=== PATIENT | female | born 1950 | race Two or more races ===

== ENCOUNTER 2017-07-28 09:41 | Day surgery (SDC) | payer OTHER ==
[2017-07-27 15:15] VITALS: BMI 23.8
[2017-07-28] MEDS ORDERED: PROPOFOL 20 ML ONE ×2 (10:31)
[2017-07-28] MEDS ORDERED: LIDOCAINE HCL/PF 2% SDV 5ML VIAL ONE (10:31)
[2017-07-28 11:11] VITALS: TEMP 97.9
[2017-07-28 12:08] VITALS: BP 145/71; PULSE 61
--- NOTE | 2017-07-29 17:36 | PATH ---
Surgical Pathology Report Patient Name: JOHANNA THOMAS [facility]. Rec. #: [id number] /Age/Gender: 1950 (Age: 67) / F Account: [id number] Location: [facility] Taken: 07/28/2017 Received: 07/28/2017 Reported: 07/29/2017 Physicians: Jaguar Adkins M.D. Specimen(s) Received BX ANTRUM Clinical History Dysphagia Antral gastritis Final Diagnosis STOMACH, ANTRUM, BIOPSY: GASTRIC ANTRAL MUCOSA WITH CHRONIC ACTIVE INFLAMMATION, MILD. IMMUNOHISTOCHEMICAL STAIN FOR H. PYLORI IS NEGATIVE. Electronically Signed Petra Harden M.D. Gross Description Received in formalin, labeled "biopsy antrum" are 3 razo, irregular portions of soft tissue ranging from 0.2-0.4 cm. in greatest dimension. The specimens are submitted in toto in one cassette. /07/28/201707/28/2017
== END 2017-07-28 12:08 | disposition home or self-care (01) ==
LOC: JASU-ENDO 09:41
PROVIDERS: ATTEND Internal Medicine Gastroenterology
PROC: 0DB68ZX Excision of Stomach, Via Natural or Artificial Opening Endoscopic, Diagnostic (ICD-10-PCS; principal; 2017-07-28 10:30)
DX: K25.9 Gastric ulcer, unspecified as acute or chronic, without hemorrhage or perforation (principal)
CPT/HCPCS: 88305-TC; 88342-TC

== ENCOUNTER 2018-01-24 18:28 | Emergency (ER) | payer OTHER ==
[2018-01-24 19:04] VITALS: BMI 23.4
--- NOTE | 2018-01-24 19:16 | PDOC ---
History of Present Illness - General History Source: Patient Exam Limitations: No Limitations <Kym Sullivan - Last Filed: 01/24/18 21:40> <Lizy Yee - Last Filed: 01/24/18 21:53> - General Chief Complaint: Palpitations Stated Complaint: PALPITATIONS Time Seen by Provider: 01/24/18 18:50 - History of Present Illness Initial Comments: 01/24/18 19:50 The patient is a 67 year old female with a significant past medical history of HTN and HLD who presents to the ED with palpitations since earlier today. The patient was recently discharged from the hospital on 01/21/18 for palpitations and had a normal echocardiogram and normal STRESS test. Patient comes to the ED today for having a sudden onset of palpitations while she was cooking one hour and half prior to arrival. She also reports intermittent lightheadedness that is worsened with certain positions associated with present symptoms. Denies chest pain or shortness of breath. Denies cough. Denies nausea, vomiting , or diarrhea. Denies dysuria or change in urinary output. Denies any other symptoms. PCP: Dr. Betzy Mckeon Cardio: Dr. Victorino Brown Surgical hx: Appendectomy (Kym Sullivan) Past History <Kym Sullivan - Last Filed: 01/24/18 21:40> - Past Medical History Anemia: No Asthma: No Cancer: No Cardiac Disorders: Yes (chest pain over 1 year ago) CVA: No COPD: No CHF: No Dementia: No Diabetes: No GI Disorders: No Disorders: No HTN: Yes Hypercholesterolemia: No Liver Disease: No Seizures: No Thyroid Disease: No - Surgical History Appendectomy: Yes - Suicide/Smoking/Psychosocial Hx Smoking Status: No Smoking History: Never smoked Have you smoked in the past 12 months: No Number of Cigarettes Smoked Daily: 0 Information on smoking cessation initiated: No Hx Alcohol Use: No Drug/Substance Use Hx: No Substance Use Type: None Hx Substance Use Treatment: No <Lizy Yee - Last Filed: 01/24/18 21:53> - Past Medical History Allergies/Adverse Reactions: Allergies Allergy/AdvReac Type Severity Reaction Status Date / Time No Known Allergies Allergy Unverified 01/24/18 19:03 Home Medications: Ambulatory Orders Lisinopril [Prinivil] 10 mg PO DAILY 03/13/13 Cardiac Specific PMH - Complaint Specific PMHX Pacemaker: No <Lizy Yee - Last Filed: 01/24/18 21:53> Review of Systems - Review of Systems Able to Perform ROS?: Yes All Other Systems: Reviewed and Negative <Kym Sullivan - Last Filed: 01/24/18 21:40> <Lizy Yee - Last Filed: 01/24/18 21:53> - Review of Systems Comments:: 01/24/18 19:50 CONSTITUTIONAL: Absent: fever, chills, diaphoresis, generalized weakness, malaise, loss of appetite HEENT: Absent: rhinorrhea, nasal congestion, throat pain, throat swelling, difficulty swallowing, mouth swelling, ear pain, eye pain, visual Changes CARDIOVASCULAR: + palpitations, lightheadedness Absent: chest pain, syncope, peripheral edema RESPIRATORY: Absent: cough, shortness of breath, dyspnea with exertion, orthopnea, wheezing, stridor, hemoptysis GASTROINTESTINAL: Absent: abdominal pain, abdominal distension, nausea, vomiting, diarrhea, constipation, melena, hematochezia GENITOURINARY: Absent: dysuria, frequency, urgency, hesitancy, hematuria, flank pain, genital pain MUSCULOSKELETAL: Absent: myalgia, arthralgia, joint swelling SKIN: Absent: rash, itching, pallor HEMATOLOGIC/IMMUNOLOGIC: Absent: easy bleeding, easy bruising, lymphadenopathy, frequent infections ENDOCRINE: Absent: unexplained weight gain, unexplained weight loss, heat intolerance, cold intolerance NEUROLOGIC: Absent: headache, focal weakness or paresthesias, dizziness, unsteady gait, seizure, mental status changes, bladder or bowel incontinence PSYCHIATRIC: Absent: anxiety, depression, suicidal or homicidal ideation, hallucinations. (Kym Sullivan) *Physical Exam <Kym Sullivan - Last Filed: 01/24/18 21:40> <Lizy Yee - Last Filed: 01/24/18 21:53> - Vital Signs Last Vital Signs Temp Pulse Resp BP Pulse Ox 97.8 F 81 16 161/86 100 01/24/18 18:38 01/24/18 18:38 01/24/18 18:38 01/24/18 18:38 01/24/18 18:38 - Physical Exam Comments: 01/24/18 19:50 GENERAL: Well developed, well nourished. Awake and alert. No acute distress. HEENT: Normocephalic, atraumatic. PERRLA, EOMI. No conjunctival pallor. Sclera are non- icteric. Moist mucous membranes. Oropharynx is clear. NECK: Supple. Full ROM. No JVD. Carotid pulses 2+ and symmetric, without bruits. No thyromegaly. No lymphadenopathy. CARDIOVASCULAR: Regular rate and rhythm. No murmurs, rubs, or gallops. Distal pulses are 2+ and symmetric. PULMONARY: No evidence of respiratory distress. Lungs clear to auscultation bilaterally. No wheezing, rales or rhonchi. ABDOMINAL: Soft. Non-tender. Non-distended. No rebound or guarding. No organomegaly. Normoactive bowel sounds. MUSCULOSKELETAL Normal range of motion at all joints. No bony deformities or tenderness. No CVA tenderness. EXTREMITIES: No cyanosis. No clubbing. No edema. No calf tenderness. SKIN: Warm and dry. Normal capillary refill. No rashes. No jaundice. NEUROLOGICAL: Alert, awake, appropriate. Cranial nerves 2-12 intact. No deficits to light touch and temperature in face, upper extremities and lower extremities. No motor deficits in the in face, upper extremities and lower extremities. Normoreflexic in the upper and lower extremities. Normal speech. Toes are down- going bilaterally. Gait is normal without ataxia. PSYCHIATRIC: Cooperative. Good eye contact. Appropriate mood and affect. (Kym Sullivan) - ADDITIONAL ORDERS Additional order review: Laboratory Results 01/24/18 19:55 Troponin I < 0.02 - Medications Given in the ED: ED Medications Discontinued Medications Generic Name Dose Route Start Last Admin Trade Name Freq PRN Reason Stop Dose Admin Aspirin 81 mg 01/24/18 19:32 01/24/18 19:41 Ecotrin - PO 01/24/18 19:33 81 mg ONCE STA Administration Medical Decision Making <Kym Sullivan - Last Filed: 01/24/18 21:40> <Lizy Yee - Last Filed: 01/24/18 21:53> - Medical Decision Making 01/24/18 21:[address] Ferreira at 21:40, patient will be discharged home and will have a Holter monitor done as an outpatient. (Kym Sullivan) 01/24/18 21:12 67-year-old female presents with complaint of palpitations. She was recently discharged from this hospital after hospitalization for chest pain. She was discharged January 21 of this month. She did have a stress test while she was hospitalized and it was essentially normal. She had 3 sets of negative troponins. The discharge plan was to follow-up with Dr. Brown next month. She was told to return to emergency department if she experienced any palpitations, which she did today. EKG today is normal sinus rhythm, normal QTC, left ventricular hypertrophy and T -wave abnormality that was unchanged from her EKG in January 19. - so significant changes were found on her EKG -her troponiin tonight is <0.02 (Lizy Yee) *DC/Admit/Observation/Transfer <Kym Sullivan - Last Filed: 01/24/18 21:40> <Lizy Yee - Last Filed: 01/24/18 21:53> Diagnosis at time of Disposition: Palpitations - Discharge Dispostion Disposition: HOME Condition at time of disposition: Stable - Referrals Referrals: Betzy Mckeon MD [Primary Care Provider] - Victorino Brown MD [Staff Physician] - - Patient Instructions Printed Discharge Instructions: DI for Palpitations Additional Instructions: please call your nursing tech and see if he can see you sooner return if your symptoms worsen - Post Discharge Activity - Attestations Scribe Attestion: 01/24/18 19:51 Documentation prepared by Kym Sullivan, acting as medical laboratory scientist for Lizy Yee MD (Kym Sullivan)
[2018-01-24] MEDS ORDERED: ASPIRIN 325 MG ENTERIC COATED TABLET (FP) PO STA (19:32)
[2018-01-24] MEDS ORDERED: ASPIRIN 81 MG CHEWABLE TABLETS ONE (19:39)
[2018-01-24 22:41] VITALS: BP 146/78; PULSE 67; TEMP 98.1
--- NOTE | 2018-01-25 12:22 | EKG ---
Test Reason : Blood Pressure : / mmHG Vent. Rate : 080 BPM Atrial Rate : 080 BPM P-R Int : 190 ms QRS Dur : 082 ms QT Int : 400 ms P-R-T Axes : 052 001 049 degrees QTc Int : 461 ms NORMAL SINUS RHYTHM POSSIBLE LEFT ATRIAL ENLARGEMENT LEFT VENTRICULAR HYPERTROPHY T WAVE ABNORMALITY, CONSIDER ANTEROLATERAL ISCHEMIA ABNORMAL ECG WHEN COMPARED WITH ECG OF 19-JAN-2018 20:41, INVERTED T WAVES HAVE REPLACED NONSPECIFIC T WAVE ABNORMALITY IN LATERAL LEADS Confirmed by DARRYL DASILVA MD ([id number]) on 01/25/2018 12:22:32 PM Referred By: Confirmed By:DARRYL DASILVA MD
== END 2018-01-24 22:41 | disposition home or self-care (01) ==
LOC: JER 18:28
DX: R00.2 Palpitations (principal); I10 Essential (primary) hypertension; E78.00 Pure hypercholesterolemia, unspecified
CPT/HCPCS: 36415; 84484; 93005; 93010; 99284-25

== ENCOUNTER 2018-12-09 10:29 | Emergency (ER) | payer OTHER ==
[2018-12-09 10:38] VITALS: BP 114/68; PULSE 72; TEMP 98.5; BMI 23.6
--- NOTE | 2018-12-09 10:44 | PDOC ---
History of Present Illness - History of Present Illness Initial Comments: 12/09/18 10:52 The patient is a 68 year old female, with a significant past medical history of hypertension, who presents to the emergency department with 2 days of left ear pain which increased last night after expoeriencing left ear "itching" for about a week. She states she was using oils on the left ear for the itching, however, stopped using the oils when she developed the pain 2 days ago. She reports associated intermittent buzzing in the left ear. She denies any throat pain. She denies putting any FB in her ear. She denies loss of hearing. The patient denies chest pain, shortness of breath, headache and dizziness. The patient denies fever, chills, nausea, vomit, diarrhea and constipation. The patient denies dysuria, frequency, urgency and hematuria. Allergies: NKDA Past surgical history: appendectomy (+30yrs ago) PCP - Dr. Julianna Gomez <Yumiko Barillas - Last Filed: 12/09/18 10:52> - General History Source: Patient Exam Limitations: No Limitations <Kim Woo - Last Filed: 12/10/18 20:40> - General Chief Complaint: Ear Problem Stated Complaint: EAR PAIN Time Seen by Provider: 12/09/18 10:43 Past History <Yumiko Barillas - Last Filed: 12/09/18 10:52> - Past Medical History Anemia: No Asthma: No Cancer: No Cardiac Disorders: Yes (chest pain over 1 year ago) CVA: No COPD: No CHF: No Dementia: No Diabetes: No GI Disorders: No Disorders: No HTN: Yes Hypercholesterolemia: No Liver Disease: No Seizures: No Thyroid Disease: No - Surgical History Appendectomy: Yes - Suicide/Smoking/Psychosocial Hx Smoking Status: No Smoking History: Never smoked Have you smoked in the past 12 months: No Number of Cigarettes Smoked Daily: 0 Hx Alcohol Use: No Drug/Substance Use Hx: No Substance Use Type: None Hx Substance Use Treatment: No <Kim Woo - Last Filed: 12/10/18 20:40> - Past Medical History Allergies/Adverse Reactions: Allergies Allergy/AdvReac Type Severity Reaction Status Date / Time No Known Allergies Allergy Unverified 01/24/18 19:03 Home Medications: Ambulatory Orders Lisinopril [Prinivil] 10 mg PO DAILY 03/13/13 Amoxicillin - [Amoxicillin 500mg Capsule -] 500 mg PO TID #15 capsule 12/09/18 Ciprofloxacin HCl/Dexameth [Ciprodex Otic Suspension] 4 drop BID 7 Days #1 bottle 12/09/18 Review of Systems - Review of Systems Able to Perform ROS?: Yes Comments:: 12/09/18 10:54 CONSTITUTIONAL: Absent: fever, no chills, no fatigue EYES: Absent: visual changes ENT: (+) left ear pain, buzzing, and itching, Absent: no sore throat CARDIOVASCULAR: Absent: chest pain, no palpitations RESPIRATORY: Absent: cough, no SOB GASTROINTESTINAL: Absent: abdominal pain, no nausea, no vomiting, no constipation, no diarrhea GENITOURINARY: Absent: dysuria, no frequency, no hematuria MUSCULOSKELETAL: Absent: back pain, no arthralgia, no myalgia SKIN: Absent: rash NEURO: Absent: headache <Yumiko Barillas - Last Filed: 12/09/18 10:52> *Physical Exam - Vital Signs Last Vital Signs Temp Pulse Resp BP Pulse Ox 98.5 F 72 16 114/68 100 12/09/18 10:37 12/09/18 10:37 12/09/18 10:37 12/09/18 10:37 12/09/18 10:37 - Physical Exam Comments: 12/09/18 10:55 GENERAL: The patient is in no acute distress. HEAD: Normal with no signs of trauma. EYES: PERRLA, EOMI, sclera anicteric, conjunctiva clear. ENT: (+) Left TM is mildly erythematous. No TM bulging. No cerumen in EAC. Pain elicited with pulling of the left pinna. right TM appears normal. nares patent , oropharynx clear without exudates. Moist mucous membranes. NECK: Normal range of motion, supple without lymphadenopathy, JVD, or masses. LUNGS: Breath sounds equal, clear to auscultation bilaterally. No wheezes, and no crackles. HEART:Regular rate and rhythm, normal S1 and S2 without murmur, rub or gallop. ABDOMEN: Soft, nontender, normoactive bowel sounds. No guarding, no rebound. No masses palpable. EXTREMITIES: Normal range of motion, no edema. No clubbing or cyanosis. No erythema, or tenderness. NEUROLOGICAL: Cranial nerves II through XII grossly intact. Normal speech. No focal neurological deficits. MUSCULOSKELETAL: Back non-tender to palpation, no CVA tenderness SKIN: Warm, Dry, normal turgor, no rashes or lesions noted. <Yumiko Barillas - Last Filed: 12/09/18 10:52> - Vital Signs Last Vital Signs Temp Pulse Resp BP Pulse Ox 98.5 F 72 16 114/68 100 12/09/18 10:37 12/09/18 10:37 12/09/18 10:37 12/09/18 10:37 12/09/18 10:37 <Kim Woo - Last Filed: 12/10/18 20:40> Moderate Sedation - Procedure Monitoring Vital Signs: Procedure Monitoring Vital Signs Temperature 98.5 F 12/09/18 10:37 Pulse Rate 72 12/09/18 10:37 Respiratory Rate 16 12/09/18 10:37 Blood Pressure 114/68 12/09/18 10:37 O2 Sat by Pulse Oximetry (%) 100 12/09/18 10:37 <Yumiko Barillas - Last Filed: 12/09/18 10:52> - Procedure Monitoring Vital Signs: Procedure Monitoring Vital Signs Temperature 98.5 F 12/09/18 10:37 Pulse Rate 72 12/09/18 10:37 Respiratory Rate 16 12/09/18 10:37 Blood Pressure 114/68 12/09/18 10:37 O2 Sat by Pulse Oximetry (%) 100 12/09/18 10:37 <Kim Woo - Last Filed: 12/10/18 20:40> Medical Decision Making - Medical Decision Making 12/10/18 20:23 68 yo F presenting to the ER with left ear pain Symptoms have been present for 4-5 days, initially pt noted itching She has been putting oil in her ear She noted ear pain for the past 2 days No fevers or chills No headache No drainage No tinnitus No mastoid pain No sore throat No trauma, no Qtip trauma On exam: TM non erythematous, No bulging, no fluid behind the ear drum EAC no fluid, no drainage, no debris No mastoid tenderness No pharyngeal erythema, non tonsillar enlargement, no exudate Will discharge to home Follow up with ENT today or tomorrow Return to the ER for any progression or worsening of symptoms <Kim Woo - Last Filed: 12/10/18 20:40> *DC/Admit/Observation/Transfer - Attestations Scribe Attestion: 12/09/18 10:56 Documentation prepared by Yumiko Barillas, acting as medical referral coordinator for Emergency Dept,Physician, <Yumiko Barillas - Last Filed: 12/09/18 10:52> - Discharge Dispostion Decision to Admit order: No <Kim Woo - Last Filed: 12/10/18 20:40> Diagnosis at time of Disposition: Ear pain Qualifiers: Laterality: left Qualified Code(s): H92.02 - Otalgia, left ear - Discharge Dispostion Disposition: HOME Condition at time of disposition: Stable - Prescriptions Prescriptions: Amoxicillin - [Amoxicillin 500mg Capsule -] 500 mg PO TID #15 capsule Ciprofloxacin HCl/Dexameth [Ciprodex Otic Suspension] 4 drop BID 7 Days #1 bottle - Referrals Referrals: Itz Gomez MD [Primary Care Provider] - Otf Jones MD [Staff Physician] - - Patient Instructions Printed Discharge Instructions: DI for Ear Pain-Adult Additional Instructions: Thank you for coming in to the ER today Please follow up with Dr Jones TODAY Return to the emergency department immediately with ANY new, persistent or worsening symptoms. Continue any medications as previously prescribed by your physician. You should follow up with your primary doctor as soon as possible regarding today's emergency department visit. Please make sure your doctor reviews the results of your emergency evaluation. Thank you for coming to the Emergency Department today for your care. It was a pleasure to see you today. Please note that your evaluation is INCOMPLETE until you follow-up with your doctor. - Post Discharge Activity Forms/Work/School Notes: Back to Work
[2018-12-09] MEDS ORDERED: IBUPROFEN 400 MG TABLET (FP) PO ONE ×2 (11:01→11:09)
== END 2018-12-09 11:07 | disposition home or self-care (01) ==
LOC: JER 10:29
DX: H92.02 Otalgia, left ear (principal); I10 Essential (primary) hypertension
CPT/HCPCS: 99281-25

== ENCOUNTER 2020-05-29 05:03 | Observation (INO) | payer OTHER ==
[2020-05-24 14:43] VITALS: BMI 25.0
[2020-05-29] MEDS ORDERED: METOPROLOL TARTRATE 5 MG/5 ML VIAL ONE (12:40)
--- NOTE | 2020-05-29 12:45 | PN ---
Progress Note (short form) - Note Progress Note: Post colonoscopy patient was noted to be in atrial fibrillation. She says she has had "palpitations" in the past but never persistent. At the time of this note she has been in AFib for over half an hour. Case discussed with Dr Itz Gomez. To admit patient to telemetry for new onset AFib. EKG => Afib, lateral ischemia. To obtain troponin, electrolytes.
[2020-05-29] MEDS ORDERED: METOPROLOL TARTRATE 5 MG/5 ML VIAL IVPUSH PRN (13:03)
[2020-05-29] MEDS ORDERED: metoPROLOL SUCCINATE 25 MG TAB.SR.24H (FP) PO ONE ×3 (13:03→13:32)
--- NOTE | 2020-05-29 13:06 | HP ---
Admitting History and Physical - Primary Care Physician PCP: Betzy Mckeon - Admission Chief Complaint: new afib History of Present Illness: during colonoscopy today ,she was experiencing MAT , tachy- david After colonoscopy - BP elevated, with uncontrolled heart rate - new onset AFib on EKG Metoprolol 5 mg iv push given by anesthesia- still HR elevated Pt is awake and alert denies chest pain she does get palpitations every now and then but none recent c/o headaches No vision issues History Source: Patient Limitations to Obtaining History: No Limitations - Past Medical History Cardiovascular: Yes: HTN ...: No Psych: Yes: Anxiety - Smoking History Smoking history: Never smoked Have you smoked in the past 12 months: No Aproximately how many cigarettes per day: 0 - Alcohol/Substance Use Hx Alcohol Use: No Home Medications - Allergies Allergies/Adverse Reactions: Allergies Allergy/AdvReac Type Severity Reaction Status Date / Time No Known Allergies Allergy Unverified 01/24/18 19:03 - Home Medications Home Medications: Ambulatory Orders Lisinopril [Prinivil] 15 mg PO DAILY 03/13/13 Review of Systems - Review of Systems Constitutional: denies: Chills Cardiovascular: denies: Chest Pain, Palpitations, Shortness of Breath Physical Examination Vital Signs: Vital Signs Temperature 96.9 F L 05/29/20 12:11 Pulse Rate 96 H 05/29/20 12:52 Respiratory Rate 20 05/29/20 12:52 Blood Pressure 176/127 H 05/29/20 12:52 O2 Sat by Pulse Oximetry (%) 100 05/29/20 12:52 Constitutional: Yes: No Distress, Calm Cardiovascular: Yes: Regular Rate and Rhythm Respiratory: Yes: CTA Bilaterally Gastrointestinal: Yes: Normal Bowel Sounds, Soft. No: Tenderness Edema: No Imaging - Results EKG: Image Reviewed (Afib) Problem List - Problems (1) New onset a-fib Code(s): I48.91 - UNSPECIFIED ATRIAL FIBRILLATION (2) HTN (hypertension) Code(s): I10 - ESSENTIAL (PRIMARY) HYPERTENSION (3) Palpitations Code(s): R00.2 - PALPITATIONS Assessment/Plan PLAN plan to admit pt in telemetry Metoprolol po Metoprolol iv as needed keep on iv fluids cardiology evaluation check labs check cardiac enzymes check echo
[2020-05-29] MEDS ORDERED: ACETAMINOPHEN 325 MG TABLET (FP) PO PRN (13:07)
[2020-05-29] MEDS: metoPROLOL SUCCINATE 25 MG TAB.SR.24H (FP) PO SCH ×2 (13:18→22:11)
--- NOTE | 2020-05-29 13:26 | EKG ---
Test Reason : Blood Pressure : / mmHG Vent. Rate : 092 BPM Atrial Rate : 111 BPM P-R Int : 000 ms QRS Dur : 094 ms QT Int : 382 ms P-R-T Axes : 000 007 182 degrees QTc Int : 472 ms ATRIAL FIBRILLATION MINIMAL VOLTAGE CRITERIA FOR LVH, MAY BE NORMAL VARIANT T WAVE ABNORMALITY, CONSIDER LATERAL ISCHEMIA PROLONGED QT ABNORMAL ECG WHEN COMPARED WITH ECG OF 24-JAN-2018 18:49, ATRIAL FIBRILLATION HAS REPLACED SINUS RHYTHM NON-SPECIFIC CHANGE IN ST SEGMENT IN INFERIOR LEADS Confirmed by Vincenzo Balderas MD ([id number]) on 05/29/2020 1:25:59 PM Referred By: Jaguar Adkins Confirmed By:Vincenzo Balderas MD
[2020-05-29 14:31] LABS: ANION GAP 7 MMOL/L (8-16); BLOOD UREA NITROGEN 6.5 mg/dL (7-18); CALCIUM 9.9 mg/dL (8.5-10.1); CHLORIDE 106 mmol/L (98-107); CO2 25 mmol/L (21-32); CREATININE 0.6 mg/dL (0.55-1.3); GLUCOSE,RANDOM 86 mg/dL (74-106); POTASSIUM 4.3 mmol/L (3.5-5.1); SODIUM 139 mmol/L (136-145)
[2020-05-29 14:53] LABS: HEMATOCRIT 47.4 % (32.4-45.2); HEMOGLOBIN 15.7 GM/dL (10.7-15.3); MCH 29.1 pg (25.7-33.7); MCHC 33.1 g/dl (32.0-36.0); MEAN CELL VOLUME 87.9 fl (80-96); PLATELET COUNT 241 K/MM3 (134-434); RBC 5.39 M/mm3 (3.60-5.2); RDW 13.8 % (11.6-15.6); WHITE BLOOD COUNT 8.4 K/mm3 (4.0-10.0)
--- NOTE | 2020-05-29 15:34 | CON.CARD ---
Consult Consult Specialty:: cardiology Reason for Consultation:: new-onset AF - History of Present Illness Chief Complaint: Pt A&Ox3; no chest pain or dyspnea; no palpitations presently. History of Present Illness: Ms. Lawson is a 70 yr old black woman with PMHx of HTN, anxiety, HLD, diastolic LV dysfunction, PSVT, now admitted after feeling palpitations post- colonoscopy and being found to be in new-onset AF with RVR. - History Source History Provided By: Patient, Medical Record Limitations to Obtaining History: No Limitations - Past Medical History Cardio/Vascular: Yes: AFIB, HTN Reproductive: Yes: Postmenopausal ...: No Psych: Yes: Anxiety - Alcohol/Substance Use Hx Alcohol Use: No - Smoking History Smoking history: Never smoked Have you smoked in the past 12 months: No Aproximately how many cigarettes per day: 0 Home Medications - Allergies Allergies/Adverse Reactions: Allergies Allergy/AdvReac Type Severity Reaction Status Date / Time No Known Allergies Allergy Unverified 01/24/18 19:03 - Home Medications Home Medications: Ambulatory Orders Lisinopril [Prinivil] 15 mg PO DAILY 03/13/13 Apixaban [Eliquis -] 5 mg PO BID #60 tablet 05/31/20 Metoprolol Succinate [Toprol XL -] 12.5 mg PO DAILY #30 tab.sr.24h 05/31/20 Family Medical History Family History: Denies Review of Systems - Review of Systems Constitutional: reports: No Symptoms Eyes: reports: No Symptoms HENT: reports: No Symptoms Neck: reports: No Symptoms Cardiovascular: reports: Palpitations Respiratory: reports: No Symptoms Gastrointestinal: reports: No Symptoms Genitourinary: reports: No Symptoms Breasts: reports: No Symptoms Reported Musculoskeletal: reports: No Symptoms Integumentary: reports: No Symptoms Neurological: reports: No Symptoms Endocrine: reports: No Symptoms Hematology/Lymphatic: reports: No Symptoms Psychiatric: reports: No Symptoms - Risk Factors Known Risk Factors: Yes: Age, Hypercholesterolemia, Hypertension, Race Vital Signs: Vital Signs Temperature 96.9 F L 05/29/20 12:11 Pulse Rate 95 H 05/29/20 15:05 Respiratory Rate 19 05/29/20 15:05 Blood Pressure 143/60 05/29/20 15:05 O2 Sat by Pulse Oximetry (%) 100 05/29/20 15:05 Constitutional: Yes: Calm Eyes: Yes: WNL HENT: Yes: WNL Neck: Yes: WNL Respiratory: Yes: WNL Gastrointestinal: Yes: WNL Renal/: No: Anuria Cardiovascular: Yes: Pulse Irregular JVD: No Carotid Bruit: No PMI: Non-Displaced Heart Sounds: Yes: S1 (varies in intensity), S2 Murmur: Yes: Systolic Murmur, Grade 1 Musculoskeletal: Yes: WNL Extremities: Yes: WNL Edema: No Peripheral Pulses WNL: Yes Integumentary: Yes: WNL Neurological: Yes: WNL ...Motor Strength: WNL Psychiatric: Yes: WNL - Other Data Labs, Other Data: CBC, BMP 05/29/20 13:40 05/29/20 13:40 Troponin, BNP 05/29/20 13:40 Troponin I < 0.02 Troponin, BNP 05/29/20 13:40 Troponin I < 0.02 Abnormal Lab Results 05/29/20 05/29/20 13:40 13:40 RBC 5.39 H Hgb 15.7 H Hct 47.4 H D Anion Gap 7 L BUN 6.5 L Echo: Report Reviewed Ejection Fraction %: LVEF > or = 40 % Imaging - Results Chest X-ray: Image Reviewed EKG: Image Reviewed Assessment/Plan New-onset AF PSVT Diastolic CHF HTN HLD ECHO 05/17/2019: normal LVEF; mild LVH; abnormal diastolic compliance; moderate ID and MR; mild TR (RVSP 29 mmHg: WNL). Stress treadmill MIBI 01/2018 ([facility]): no myocardial ischemia or arrhythmias; fair exercise functional capacity (walked 6:30 minutes using Thomas protocol). Holter monitor 02/2018: NSR; several brief runs of PSVT (the longest 12 beats at 110 bpm; the fastest 3 beats at 132 bpm); periods of sinus bradycardia, with lowest HR 47 bpm in early am. 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 Plan: Continue metoprolol ER 25 mg daily; careful if contemplating increasing the dose, given periods of marked sinus bradycardia on 2018 Holter (though likely while asleep in early am: minimum HR 47 bpm). Continue lisinopril for HTN. Start anticoagulation: apixaban 5 mg bid. TNI < 0.02; f/u serially. Telemetry monitoring. ECHO for LVEF, chamber sizes, wall thickness, valve status. TSH Lipids Serial BP and HR.
[2020-05-29] MEDS: D5-1/2NS+20 MEQ KCL - 20 MEQ/1,000 ML INFUS.BAG IV SCH (18:03)
[2020-05-29] MEDS: APIXABAN 5 MG TABLET PO SCH ×2 (18:03→22:11)
[2020-05-30] MEDS: D5-1/2NS+20 MEQ KCL - 20 MEQ/1,000 ML INFUS.BAG IV SCH (05:32)
[2020-05-30 07:47] LABS: HEMATOCRIT 43.7 % (32.4-45.2); HEMOGLOBIN 14.3 GM/dL (10.7-15.3); MCH 28.6 pg (25.7-33.7); MCHC 32.8 g/dl (32.0-36.0); MEAN CELL VOLUME 87.2 fl (80-96); MEAN PLT VOLUME 8.6 fl (7.5-11.1); PLATELET COUNT 244 K/MM3 (134-434); RBC 5.02 M/mm3 (3.60-5.2); RDW 13.2 % (11.6-15.6)
--- NOTE | 2020-05-30 10:09 | PN ---
Progress Note, Physician History of Present Illness: Ms. Lawson is a 70 yr old black woman with PMHx of HTN, anxiety, HLD, diastolic LV dysfunction, now admitted after feeling palpitations post- colonoscopy and being found to be in new-onset AF with RVR. - Current Medication List Current Medications: Active Medications Acetaminophen (Tylenol -) 650 mg PO Q6H PRN PRN Reason: FEVER Apixaban (Eliquis -) 5 mg PO BID [facility] Last Admin: 05/29/20 22:11 Dose: 5 mg Documented by: Potassium Chloride/Dextrose/Sod Cl (D5-1/2ns+20 Meq Kcl -) 20 meq in 1,000 mls @ 100 mls/hr IV ASDIR [facility] Last Admin: 05/30/20 05:32 Dose: 100 mls/hr Documented by: Lisinopril (Prinivil) 20 mg PO DAILY [facility] Metoprolol Succinate (Toprol Xl -) 25 mg PO BID [facility] Last Admin: 05/29/20 22:11 Dose: 25 mg Documented by: Metoprolol Tartrate (Lopressor Injection -) 5 mg IVPUSH Q4H PRN PRN Reason: HYPERTENSION - Objective Vital Signs: Vital Signs Temperature 97.8 F 05/30/20 06:00 Pulse Rate 54 L 05/30/20 06:00 Respiratory Rate 18 05/30/20 06:00 Blood Pressure 123/56 L 05/30/20 06:00 O2 Sat by Pulse Oximetry (%) 98 05/30/20 06:00 Eyes: Yes: WNL, Conjunctiva Clear, EOM Intact HENT: Yes: WNL, Atraumatic, Normocephalic Neck: Yes: WNL, Supple, Trachea Midline Cardiovascular: Yes: Pulse Irregular Respiratory: Yes: WNL, Regular, CTA Bilaterally Gastrointestinal: Yes: WNL, Normal Bowel Sounds Genitourinary: Yes: WNL Musculoskeletal: Yes: WNL Extremities: Yes: WNL Edema: No Integumentary: Yes: WNL Neurological: Yes: WNL, Alert, Oriented ...Motor Strength: WNL Psychiatric: Yes: WNL Labs: CBC, BMP 05/30/20 06:19 05/29/20 13:40 Assessment/Plan New-onset AF Diastolic CHF HTN HLD ECHO 05/17/2019: normal LVEF; mild LVH; abnormal diastolic compliance; moderate AZ and MR; mild TR (RVSP 29 mmHg: WNL). Stress treadmill MIBI 01/2018 ([facility]): no myocardial ischemia or arrhythmias; fair exercise functional capacity (walked 6:30 minutes using Thomas protocol). Holter monitor 02/2018: NSR; several brief runs of PSVT (the longest 12 beats at 110 bpm; the fastest 3 beats at 132 bpm); periods of sinus bradycardia, with lowest HR 47 bpm in early am. 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 Plan: Continue metoprolol ER 25 mg daily; careful if contemplating increasing the dose, given periods of marked sinus bradycardia on 2018 Holter (though likely while asleep in early am: minimum HR 47 bpm). Continue lisinopril for HTN. Start anticoagulation: apixaban 5 mg bid. TNI < 0.02; f/u serially. Telemetry monitoring. ECHO for LVEF, chamber sizes, wall thickness, valve status. TSH Lipids Serial BP and HR.
[2020-05-30] MEDS: APIXABAN 5 MG TABLET PO SCH ×2 (10:31→21:15)
[2020-05-30] MEDS: metoPROLOL SUCCINATE 25 MG TAB.SR.24H (FP) PO SCH ×3 (10:32→21:15)
[2020-05-30] MEDS: LISINOPRIL 20 MG TABLET (FP) PO SCH (10:32)
--- NOTE | 2020-05-30 11:24 | ECHO ---
Name: JOHANNA THOMAS Exam:Adult Echocardiogram Study Date: 05/30/2020 09:22 AM Age: 70 yrs Reason For Study: NEW ONSET A-FIB Height: 60 in Weight: 128 lb BSA: 1.5 m2 MMode/2D Measurements & Calculations RVDd: 2.8 cm Ao root diam: 2.9 cm IVSd: 1.1 cm LA dimension: 2.9 cm LVIDd: 3.7 cm ACS: 1.7 cm LVIDs: 2.5 cm LVPWd: 0.93 cm EDV(Jacksonich): 59.7 ml LVOT diam: 2.0 cm ESV(Teresita): 23.0 ml TAPSE: 2.2 cm RV S Gm: 11.2 cm/sec Doppler Measurements & Calculations MV E max gm: 63.2 cm/sec Ao V2 max: 123.5 cm/sec MV A max gm: 71.1 cm/sec Ao max P.1 mmHg MV E/A: 0.89 Ao V2 mean: 86.2 cm/sec MV dec time: 0.32 sec Ao mean P.3 mmHg Ao V2 VTI: 25.2 cm ANNA(I,D): 3.0 cm2 ANNA(V,D): 2.9 cm2 LV V1 max P.1 mmHg SV(LVOT): 74.6 ml LV V1 mean P.4 mmHg LV V1 max: 112.5 cm/sec LV V1 mean: 72.5 cm/sec LV V1 VTI: 23.5 cm TR max gm: 183.7 cm/sec PA V2 max: 67.9 cm/sec TR max P.6 mmHg PA max P.8 mmHg PA acc slope: 283.3 cm/sec2 PA acc time: 0.17 sec PI end-d gm: 70.6 cm/sec Med Peak E' Gm: 7.1 cm/sec Med E/e': 8.9 Lat Peak E' Gm: 6.8 cm/sec Lat E/e': 9.3 PA pr(Accel): 4.5 mmHg Procedure A complete two-dimensional transthoracic echocardiogram was performed (2D, M-mode, Doppler and color flow Doppler). Left Ventricle The left ventricular size, thickness and function are normal. Ejection Fraction = 60%. E/A reversal c onsistent with but not diagnostic of poor LV compliance. The left ventricular wall motion is normal. Right Ventricle The right ventricle is normal in size and function. Atria Normal left and right atrial size and function. Mitral Valve The mitral valve is normal in structure and function. There is trace mitral regurgitation. Tricuspid Valve The tricuspid valve is normal in structure and function. There is trace tricuspid regurgitation. Righ t ventricular systolic pressure is 18 mmhg. Aortic Valve The aortic valve is normal in structure and function. Pulmonic Valve The pulmonic valve is normal in structure and function. Trace pulmonic valvular regurgitation. Great Vessels The aortic root is normal size. Pericardium/Pleura There is no pericardial effusion. There is no pleural effusion. Interpretation Summary The left ventricular size, thickness and function are normal Ejection Fraction = 60%. There is trace mitral regurgitation. There is trace tricuspid regurgitation. Trace pulmonic valvular regurgitation. MD Vincenzo Balderas 05/30/2020 11:23 AM
--- NOTE | 2020-05-30 11:36 | PN.GI ---
GI Progress Note Subjective: GI NOte: No abdominal pain following colonoscopy. Atrial fibrillation is being evaluated. I discussed the colonoscopic findings with Milvia. - Objective Vital Signs: Vital Signs Temperature 98.2 F 05/30/20 10:00 Pulse Rate 50 L 05/30/20 10:00 Respiratory Rate 18 05/30/20 10:00 Blood Pressure 116/64 05/30/20 10:00 O2 Sat by Pulse Oximetry (%) 98 05/30/20 10:00 Laboratory Tests 05/29/20 05/29/20 05/30/20 13:40 20:30 06:19 WBC 6.0 Hgb 14.3 Potassium 4.3 Troponin I < 0.02 Constitutional: Calm ...Auscultate: Yes: Normoactive Bowel Sounds ...Palpate: Yes: Soft, Other (nontender) Labs: CBC, BMP 05/30/20 06:19 05/29/20 13:40 Assessment/Plan Impression: - New onset atrial fibrillation in the setting of colonoscopy and MAC - Colon polyp removed Plan: - As per cardiology. NO GI objections to discharge when cleared by cardiology Problem List - Problems (1) Colon polyp Code(s): K63.5 - POLYP OF COLON (2) Diverticulosis Code(s): K57.90 - DVRTCLOS OF INTEST, PART UNSP, W/O PERF OR ABSCESS W/O BLEED (3) New onset a-fib Code(s): I48.91 - UNSPECIFIED ATRIAL FIBRILLATION (4) HTN (hypertension) Code(s): I10 - ESSENTIAL (PRIMARY) HYPERTENSION (5) Hyperlipidemia Code(s): E78.5 - HYPERLIPIDEMIA, UNSPECIFIED
--- NOTE | 2020-05-30 12:51 | PN ---
Progress Note (short form) - Note Progress Note: pt examined in tele no distress no dizziness no fatigue no headaches HR lowest in the 40's Vital Signs - 24 hr 05/29/20 05/29/20 05/29/20 12:52 13:06 13:30 Temperature Pulse Rate 96 H 98 H 101 H Respiratory 20 22 H 20 Rate Blood Pressure 176/127 H 175/113 H 182/113 H O2 Sat by Pulse 100 100 98 Oximetry (%) 05/29/20 05/29/20 05/29/20 13:52 14:05 15:05 Temperature Pulse Rate 94 H 100 H 95 H Respiratory 20 20 19 Rate Blood Pressure 168/101 H 146/88 143/60 O2 Sat by Pulse 100 100 100 Oximetry (%) 05/29/20 05/29/20 05/29/20 15:34 16:30 18:00 Temperature 97.8 F 97.5 F L Pulse Rate 100 H 95 H 129 H Respiratory 18 18 18 Rate Blood Pressure 140/92 118/81 128/93 O2 Sat by Pulse 100 99 99 Oximetry (%) 05/29/20 05/29/20 05/30/20 20:00 21:00 02:00 Temperature 97.4 F L 98.3 F Pulse Rate 105 H 53 L Respiratory 18 18 Rate Blood Pressure 135/49 L 117/72 O2 Sat by Pulse 98 98 100 Oximetry (%) 05/30/20 05/30/20 06:00 10:00 Temperature 97.8 F 98.2 F Pulse Rate 54 L 50 L Respiratory 18 18 Rate Blood Pressure 123/56 L 116/64 O2 Sat by Pulse 98 98 Oximetry (%) Current Medications Generic Name Dose Route Start Last Admin Trade Name Freq PRN Reason Stop Dose Admin Acetaminophen 650 mg 05/29/20 13:07 Tylenol - PO Q6H PRN FEVER Apixaban 5 mg 05/29/20 16:30 05/30/20 10:31 Eliquis - PO 5 mg BID [facility] Administration Potassium Chloride/Dextrose/Sod Cl 20 meq in 1,000 mls @ 100 mls/hr 05/29/20 13:30 05/30/20 05:32 D5-1/2ns+20 Meq Kcl - IV 100 mls/hr ASDIR [facility] Administration Lisinopril 20 mg 05/30/20 10:00 05/30/20 10:32 Prinivil PO 20 mg DAILY [facility] Administration Metoprolol Succinate 12.5 mg 05/30/20 12:49 Toprol Xl - PO BID [facility] Metoprolol Tartrate 5 mg 05/29/20 13:03 Lopressor Injection - IVPUSH Q4H PRN HYPERTENSION Laboratory Results - last 24 hr 05/29/20 05/29/20 05/29/20 13:40 13:40 20:30 WBC 8.4 RBC 5.39 H Hgb 15.7 H Hct 47.4 H D MCV 87.9 MCH 29.1 MCHC 33.1 RDW 13.8 Plt Count 241 MPV 9.0 Sodium 139 Potassium 4.3 Chloride 106 Carbon Dioxide 25 Anion Gap 7 L BUN 6.5 L Creatinine 0.6 Est GFR (CKD-EPI)AfAm 107.03 Est GFR (CKD-EPI)NonAf 92.35 Random Glucose 86 Calcium 9.9 Creatine Kinase 89 54 Troponin I < 0.02 < 0.02 Triglycerides Cholesterol Total LDL Cholesterol HDL Cholesterol TSH Free T4 05/30/20 05/30/20 06:19 06:19 WBC 6.0 RBC 5.02 Hgb 14.3 Hct 43.7 MCV 87.2 MCH 28.6 MCHC 32.8 RDW 13.2 Plt Count 244 MPV 8.6 Sodium Potassium Chloride Carbon Dioxide Anion Gap BUN Creatinine Est GFR (CKD-EPI)AfAm Est GFR (CKD-EPI)NonAf Random Glucose Calcium Creatine Kinase Troponin I Triglycerides 87 Cholesterol 192 Total LDL Cholesterol 121 H HDL Cholesterol 49 TSH 1.97 Free T4 1.21 S1 S2 Irregular Lungs clear \Abd- soft, NT no edema PLAN Will decrease toprol xl-- 12.5 mg bid Echo-- normal EF added Eliquis continue with meds BP controlled Problem List - Problems (1) New onset a-fib Code(s): I48.91 - UNSPECIFIED ATRIAL FIBRILLATION (2) HTN (hypertension) Code(s): I10 - ESSENTIAL (PRIMARY) HYPERTENSION (3) Palpitations Code(s): R00.2 - PALPITATIONS
--- NOTE | 2020-05-30 14:32 | PATH ---
Surgical Pathology Report Patient Name: JOHANNA THOMAS [facility]. Rec. #: [id number] /Age/Gender: 1950 (Age: 70) / F Account: [id number] Location: 4 SO PEDS/ADOL Taken: 05/29/2020 Received: 05/29/2020 Reported: 05/30/2020 Physicians: Jaguar Adkins M.D. Specimen(s) Received HEPATIC FLEXURE Clinical History Colonic polyps Final Diagnosis COLON, HEPATIC FLEXURE, POLYP, BIOPSY: COLONIC MUCOSA WITH FOCAL SUPERFICIAL HYPERPLASTIC FEATURES. Electronically Signed Petra Harden M.D. Gross Description Received in formalin, labeled "hepatic flexure polyp" is a razo, irregular portion of soft tissue measuring 0.2 cm. in greatest dimension. The specimen is submitted in toto in one cassette. /05/29/2020 [facility]05/29/2020
[2020-05-31] MEDS: APIXABAN 5 MG TABLET PO SCH (10:17)
[2020-05-31] MEDS: metoPROLOL SUCCINATE 25 MG TAB.SR.24H (FP) PO SCH (10:17)
[2020-05-31] MEDS: LISINOPRIL 20 MG TABLET (FP) PO SCH (10:17)
[2020-05-31 10:19] VITALS: BP 144/66; PULSE 62; TEMP 97.8
--- NOTE | 2020-05-31 12:37 | DS ---
Physical Examination Vital Signs: Vital Signs Temperature 97.8 F 05/31/20 10:00 Pulse Rate 62 05/31/20 10:00 Respiratory Rate 18 05/31/20 10:00 Blood Pressure 144/66 05/31/20 10:00 O2 Sat by Pulse Oximetry (%) 98 05/31/20 10:00 Constitutional: Yes: No Distress, Calm Cardiovascular: Yes: Pulse Irregular Respiratory: Yes: CTA Bilaterally Gastrointestinal: Yes: Normal Bowel Sounds, Soft. No: Tenderness Edema: No Labs: CBC, BMP 05/30/20 06:19 05/29/20 13:40 Discharge Summary Problems reviewed: Yes Reason For Visit: COLONIC POLYPS Current Active Problems Colon polyp (Acute) Diverticulosis (Acute) New onset a-fib (Acute) Hospital Course: Admitted post colonoscopy new onset Afib She was started on Toprol-- adjusted for heart rate and also Eliquis Cardiac enzymes negative evaluated by Cardiology Echo-- normal EF stable for dc home - Instructions Diet, Activity, Other Instructions: Patient was admitted in [facility] from 05/29-05/31. She may return to work without restrictions on 06/04/2020. Referrals: Victorino Brown MD [Staff Physician] - Betzy Mckeon MD [Staff Physician] - Disposition: HOME - Home Medications Comprehensive Discharge Medication List: Ambulatory Orders Lisinopril [Prinivil] 15 mg PO DAILY 03/13/13 Apixaban [Eliquis -] 5 mg PO BID #60 tablet 05/31/20 Metoprolol Succinate [Toprol XL -] 12.5 mg PO DAILY #30 tab.sr.24h 05/31/20
== END 2020-05-31 13:47 | disposition home or self-care (01) ==
LOC: JASU-ENDO 05:03 → INTOOBSV 13:16 → J2C 13:16 → J4S 16:59
PROVIDERS: ADMIT Internal Medicine Gastroenterology; ATTEND Internal Medicine
PROC: 3E033GC Introduction of Other Therapeutic Substance into Peripheral Vein, Percutaneous Approach (ICD-10-PCS; principal; 2020-05-29 11:00)
DX: I11.9 Hypertensive heart disease without heart failure (principal); I48.91 Unspecified atrial fibrillation; I10 Essential (primary) hypertension; R00.2 Palpitations; K63.5 Polyp of colon; K57.90 Diverticulosis of intestine, part unspecified, without perforation or abscess without bleeding; E78.5 Hyperlipidemia, unspecified; F41.9 Anxiety disorder, unspecified
CPT/HCPCS: 36415; 80048; 80061; 82550; 83721; 84439; 84443; 84484; 85027; 88305-TC; 93005; 93010; 93306-TC; G0378

== ENCOUNTER 2021-01-24 09:35 | Emergency (ER) | payer OTHER ==
[2021-01-24 10:00] VITALS: BP 131/82; PULSE 62; TEMP 98.2; BMI 26.4
[2021-01-24] MEDS ORDERED: IBUPROFEN 600 MG TABLET (FP) PO ONE (11:18)
== END 2021-01-24 11:21 | disposition home or self-care (01) ==
LOC: JER 09:35 → JERFT 09:35
DX: S50.12XA Contusion of left forearm, initial encounter (principal)
CPT/HCPCS: 73090-TC-LT-FY; 99284-25

== ENCOUNTER 2021-03-19 06:58 | Emergency (ER) | payer OTHER ==
[2021-03-19 07:05] VITALS: BP 147/88; PULSE 65; TEMP 99; BMI 24.2
[2021-03-19] MEDS ORDERED: SODIUM CHLORIDE 1,000 ML IV STA (08:28)
[2021-03-19 08:52] LABS: BASO % 1.1 % (0-2.0); EOS % 0.7 % (0-4.5); HEMOGLOBIN 12.1 GM/dl (10.7-15.3); LYMPH % 23.3 % (8-40); MCH 28.2 pg (25.7-33.7); MEAN CELL VOLUME 88.2 fl (80-96); MEAN PLT VOLUME 8.1 fl (7.5-11.1); MONO % 4.9 % (3.8-10.2); PLATELET COUNT 254 K/MM3 (134-434); RDW 12.5 % (11.6-15.6); WHITE BLOOD COUNT 6.7 K/mm3 (4.0-10.8)
[2021-03-19 08:53] LABS: INR 1.15 (0.82-1.09); PROTHROMBIN TIME (PATIENT) 12.8 SEC (10.2-13.0)
[2021-03-19 08:58] LABS: ALBUMIN 3.8 g/dl (3.4-5.0); BILIRUBIN,TOTAL 0.8 mg/dl (0.2-1); CALCIUM 8.9 mg/dl (8.5-10); CREATININE 0.6 mg/dl (0.55-1.3); TOT PROT 6.7 g/dl (6.4-8.2)
== END 2021-03-19 11:19 | disposition home or self-care (01) ==
LOC: FER 06:58
PROC: 3E0337Z Introduction of Electrolytic and Water Balance Substance into Peripheral Vein, Percutaneous Approach (ICD-10-PCS; principal; 2021-03-19)
DX: K52.9 Noninfective gastroenteritis and colitis, unspecified (principal)
CPT/HCPCS: 36415; 74177-TC; 80053; 82272; 85025; 85610; 99285-25

== ENCOUNTER → 2021-03-21 | Day surgery (SDC) | payer OTHER ==
[2021-03-21 12:17] VITALS: BMI 24.3
[2021-03-21 12:54] VITALS: TEMP 97.8
[2021-03-21 13:26] VITALS: BP 139/53; PULSE 52
== END | disposition home or self-care (01) ==
LOC: JASU-ENDO 08:32
PROVIDERS: ATTEND Internal Medicine Gastroenterology
PROC: 0DBN8ZX Excision of Sigmoid Colon, Via Natural or Artificial Opening Endoscopic, Diagnostic (ICD-10-PCS; principal; 2021-03-21 13:00)
DX: K55.9 Vascular disorder of intestine, unspecified (principal); K62.5 Hemorrhage of anus and rectum
CPT/HCPCS: 88305-TC